=== PATIENT | male | born 1990 | race Caucasian/White ===

== ENCOUNTER 2018-03-31 22:08 | Emergency (ER) | payer SELFPAY ==
[2018-03-31 23:23] VITALS: BP 153/87
--- NOTE | 2018-03-31 23:28 | EDPHY ---
H & P Stated Complaint: LDS ingestion Time Seen by Provider: 03/31/18 23:19 HPI/ROS: HPI The patient presents with LSD ingestion with feelings of lightheadedness. The patient was at a music concert, took 3 tabs of LSD at 6:30 p.m.. At about 9:00 p.m. He began to feel lightheaded and dizzy. Family said that he appeared diaphoretic. He sat down and this helped with his symptoms, however felt that the lightheadedness was getting worse. He presents via ambulance. He has received 1 L of normal saline with improvement in his symptoms. He no longer feels lightheaded. He denies any falls or injuries. Family confirms this. REVIEW OF SYSTEMS Constitutional: No fever, no chills. Eyes: No discharge. ENT: No sore throat. Cardiovascular: No chest pain, no palpitations. Respiratory: No cough, no shortness of breath. Gastrointestinal: No abdominal pain, no vomiting. Genitourinary: No hematuria. Musculoskeletal: No back pain. Skin: No rashes. Neurological: No headache. PMHx: Healthy Soc Hx: Visiting with his family from [place] PHYSICAL General Appearance: Alert, no distress Eyes: Pupils equal and round no pallor or injection ENT, Mouth: Mucous membranes moist Respiratory: There are no retractions, lungs are clear to auscultation Cardiovascular: Tachycardic rate and regular rhythm Gastrointestinal: Abdomen is soft and non-tender, no masses, bowel sounds normal Neurological: A&O, moves all extremities Skin: Warm and dry, no rashes Musculoskeletal: Neck is supple non tender Extremities: symmetrical, full range of motion Psychiatric: Patient is oriented X 3, there is no agitation Source: Patient, Family, EMS Exam Limitations: Intoxication - Personal History Current Tetanus/Diphtheria Vaccine: Unsure - Medical/Surgical History Hx Asthma: No Hx Chronic Respiratory Disease: No Hx Diabetes: No Hx Cardiac Disease: No Hx Renal Disease: No Hx Cirrhosis: No Hx Alcoholism: No Hx HIV/AIDS: No Hx Splenectomy or Spleen Trauma: No Other PMH: denies - Social History Smoking Status: Never smoked Constitutional: Initial Vital Signs Temperature (C) 37.8 C 03/31/18 22:17 Heart Rate 116 H 03/31/18 22:17 Respiratory Rate 18 03/31/18 22:17 Blood Pressure 132/94 H 03/31/18 22:17 O2 Sat (%) 97 03/31/18 22:17 O2 Delivery Mode Room Air Allergies/Adverse Reactions: No Known Allergies Allergy (Unverified 03/31/18 22:23) Home Medications: Medication Instructions Recorded NK [No Known Home Meds] 03/31/18 Medical Decision Making Differential Diagnosis: This is a 27-year-old healthy man who took 3 tabs of LSD at 6:30 p.m. Tonight, 3 hr later began to feel lightheaded and diaphoretic. Here, he is feeling better after receiving 1 L normal saline IV. Differential diagnosis includes LSD intoxication, dehydration, altitude sickness. The patient was observed in the emergency department, he continued to be tachycardic but was more awake and alert and felt better. We were able to ambulate him around the emergency department without any lightheadedness or dizziness. He will be discharged into the care of his family. Departure - Departure Disposition: Home, Routine, Self-Care Clinical Impression: LSD overdose Qualifiers: Encounter type: initial encounter Injury intent: accidental or unintentional Qualified Code(s): T40.8X1A - Poisoning by lysergide [LSD], accidental ( unintentional), initial encounter Condition: Good Instructions: Polysubstance Abuse (ED) Additional Instructions: Please make sure to drink plenty of fluids in the next several hours. As if your feeling badly, focus on your breathing and take several deep breaths. You can return to the emergency department if your worse in any way. Referrals: Patient,NotPresent [Primary Care Provider] - As per Instructions
== END 2018-03-31 23:41 | disposition home or self-care (01) ==
DX: T40.8X1A Poisoning by lysergide [LSD], accidental (unintentional), initial encounter (principal)